=== PATIENT | male | born 1970 | race Caucasian/White ===

== ENCOUNTER 2019-10-10 12:09 | Outpatient (CLI) | payer BC ==
[~2019-10-10 12:09] MED LIST: REGADENOSON 0.4 MG/5 ML SYRINGE ONE
== END 2019-10-10 23:59 | disposition home or self-care (01) ==
LOC: CFH 12:09
PROVIDERS: ATTEND Internal Medicine Cardiovascular Disease
DX: I11.0 Hypertensive heart disease with heart failure (principal); R07.89 Other chest pain
CPT/HCPCS: 78452; 93017; A9502; J2785

== ENCOUNTER 2019-10-29 09:46 | Day surgery (SDC) | payer BC ==
[~2019-10-29] VITALS: Ht 180.3 cm; Wt 106.8 kg
[2019-10-29 10:21] VITALS: BP 143/85
[2019-10-29] MEDS ORDERED: MONT10TA9 PO (10:27)
[2019-10-29] MEDS ORDERED: ATOR20TA37 PO (10:27)
[2019-10-29] MEDS ORDERED: LOSA50TA14 PO (10:27)
[2019-10-29] MEDS ORDERED: CYAN-27 PO (10:27)
[2019-10-29] MEDS ORDERED: AMLO10TA8 PO (10:27)
[2019-10-29] MEDS ORDERED: OMEP-110 PO (10:27)
[2019-10-29] MEDS ORDERED: MELO15TA24 PO (10:27)
[2019-10-29] MEDS ORDERED: FLUT1BLS10 INH (10:27)
[2019-10-29] MEDS ORDERED: MIDAZOLAM 1 MG/ML, 2ML ONE (11:17)
[2019-10-29] MEDS ORDERED: BIVALIRUDIN 250 MG ONE (11:18)
[2019-10-29] MEDS ORDERED: LIDOCAINE-MPF 1%, 5ML ONE (11:18)
[2019-10-29] MEDS ORDERED: FENTANYL PF 250 MCG/5ML ONE (11:18)
[2019-10-29] MEDS ORDERED: HEPARIN 1,000 UNITS/ML, 10ML ONE (11:18)
[2019-10-29] MEDS ORDERED: NITROGLYCERIN 5 MG/ML, 10ML ONE (11:18)
[2019-10-29] MEDS ORDERED: VERAPAMIL 2.5 MG/ML, 2ML ONE (11:18)
[2019-10-29] MEDS ORDERED: SODIUM CHLORIDE 0.9% 1,000 ML IV SCH (13:07)
== END 2019-10-29 13:23 | disposition home or self-care (01) ==
LOC: CACL 09:46
PROVIDERS: ATTEND Internal Medicine Cardiovascular Disease
DX: R07.89 Other chest pain (principal); I10 Essential (primary) hypertension; F19.90 Other psychoactive substance use, unspecified, uncomplicated; J45.909 Unspecified asthma, uncomplicated; Z72.89 Other problems related to lifestyle; Z88.1 Allergy status to other antibiotic agents; Z88.8 Allergy status to other drugs, medicaments and biological substances; Z91.040 Latex allergy status
CPT/HCPCS: 93458; 99156; C1769; C1894; J1644; J2250; J3010; Q9967; J0583